=== PATIENT | female | born 1955 | race Caucasian/White ===

== ENCOUNTER 2022-06-03 07:35 | Outpatient (CLI) | payer MEDICARE, BC, SELFPAY | END 2022-06-03 07:36 | disposition home or self-care (01) | LOC: NFLDREF 06-04 14:34 | PROVIDERS: PCP Internal Medicine; Referring Provider Internal Medicine; Visit Provider Internal Medicine | DX: I10 Essential (primary) hypertension (principal); E78.5 Hyperlipidemia, unspecified | CPT/HCPCS: 80053; 80061 ==

== ENCOUNTER 2023-02-22 06:33 | Outpatient (CLI) | payer MEDICARE, BC, SELFPAY ==
--- OUTSIDE RECORDS SUMMARY | 2023-02-22 06:35 | XMS_ITS | Continuity of Care Document ---
Author Name Unknown Organization [facility] Address [address] [address] [place] [address] Phone Care Team Providers Care Seedling Puller Name Role Phone Jabier Adames MD Unavailable Unavailable Allergies, Adverse Reactions, Alerts Substance Reaction Status Criticality ampicillin Rash Active No Information Medications Medication Instructions Dosage Effective Dates (start - stop) Status Comments Canasa 1,000 mg rectal suppository insert 1 suppository by rectal route every day at bedtime 1000 MG - Active biotin 1,000 mcg chewable tablet take 1 tablet by oral route every day 1 tablet - Active Vitamin D3 2,000 unit capsule take 1 tablet by oral route every day 1 tablet - Active Multivitamin unknown Oral - Active FISH OIL (unknown strength) Not Available - Active coenzyme Q10 200 mg capsule take 1 capsule by oral route every day 1 capsule - Active aspirin 81 mg chewable tablet chew 1 tablet by oral route every day 81 MG - Active cetirizine 10 mg chewable tablet chew 1 tablet by oral route every day 10 MG - Active simvastatin 40 mg tablet take 1 tablet b y oral route every day in the evening 40 MG - Active hydrochlorothiazide 12.5 mg tablet take 1 tablet by oral route every day 12.5 MG - Active Lialda 1.2 gram tablet,delayed release take 1 tablet by oral route 2 times every day with a meal 1.2 G - No Longer Active balsalazide 750 mg capsule take 2 capsule by oral route 2 times every day 1500 MG - No Longer Active Procedures Procedure Date Offic/outpt E&m New Mod-hi Esophagoscopy; W/balloon Colonoscopy Flex; W/bx 1/ Advance Directives Directive Yes / No Effective Date File Name No Information Encounters Encounter Description Practice Location Reason(s) For Visit Diagnoses Date Provider Providers Copied on Encounter [facility], [address] [address], [place], [place], [id number], [place] tel:[phone] [facility] No Information 9 Zacarias Eugene. [address] [address], [place], [place], [id number] , [place]. [phone] [facility], [address] [address], [place], [place], [id number], [place] tel:[phone] [facility] No Information 8 Zacarias Eugene. [address] [facility], [place], [place], [id number] , [place]. tel:[phone] Offic/outpt E&m [facility], [address] [address], [place], [place], [id number], [place] tel:[phone] [facility] GI Symptoms or Concerns (chief complaint) Ulcerative proctitis with rectal bleedingDietary counseling and surveillance 8 Zacarias Eugene. [address] [facility], [place], [place], [id number] , [place]. tel:[phone] Referring Provider: Aurelio Martell, [address] [place] [address], [address]. tel:[phone] [facility], [address] [address], [place], [place], [id number], [place] tel:[phone] [facility] DiarrheaRectal bleed/BRBPR [address] Dion Powers. [address] [facility], [place], [place], [id number] , [place]. tel:[phone] Referring Provider: Georgette Botello MD, [address], [place], [address]. tel:[phone] Family History Family Member Type Diagnosis Age At Onset Father Problem (finding) Non-Hodgkin's lymphoma Sister Problem (finding) Alive and well Father Problem (finding) Cardiovascular disease Payers Payer name Insurance type Covered republican ID Liliya daniel(s) [facility] [id number] Social History Type Description Quantity Date Captured Comments Alcohol Use Details Unknown Caffeine Use Details Unknown Tobacco Use Status No Information Smoking Status No Information Sex Female Chief Complaint And Reason For Visit No Information Reason For Referral Reason For Referral No Information Plan Of Treatment Date Type Action Status Goal Lifestyle education regardin g diet completed Referral Ordered: Start IBD Disease Management Protocol Appointment date/timeframe: -today ordered History Of Present Illness Encounter Date Complaint History Of Prese nt Illness GI Symptoms or Concerns I had th e pleasure of meeting Ms. Dianne Louie, a 62-year-old woman seen in consultation at the request of Dr. Aurelio Gonzalez for evaluation of ulcerative proctitis.Dianne was diagnosed with ulcerative proctitis over two decades ago, at least. It looks like in the early 1999, she followed with Dr. 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 She also has some bilateral lower abdominal cramping especially after eating or in the morning.She was referred for a colonoscopy performed by Dr. Gonzalez in November of this year with a finding of severely erythematous mucosa in the rectosigmoid colon. Biopsies showed moderately active and chronic colitis. Functional Status Date Functional Assessmen t No Information Instructions Date Instruction Additional Infor mation 1. Education about u lcerative proctitis.2. Proceed with oral mesalamine and rectal mesalamine.3. She will call me or e-mail me in four weeks and we will discuss next steps.Thank you very much for involving me in the care of Ms. Louie. Related to Ulcerative proctitis with rectal bleeding Lifestyle education regarding di et Related to Dietary counseling and surveillance Assessments Type Assessment Date No Information Patient Care Teams Name Effective Dates (start - stop) Status Members No Information
--- NOTE | 2023-02-22 08:04 | W.ANESCHARGE ---
Anesthesia Charges Start Date/Time Anesthesia Start Date: 02/22/23 Anesthesia Start Time: 07:18 Stop Date/Time Anesthesia Stop Date: 02/22/23 Anesthesia Stop Time: 07:57
--- NOTE | 2023-02-22 09:50 | W.ANESCHARGE ---
Anesthesia Charges Start Date/Time Anesthesia Start Date: 02/22/23 Anesthesia Start Time: 07:18 Stop Date/Time Anesthesia Stop Date: 02/22/23 Anesthesia Stop Time: 07:57
== END 2023-02-22 06:34 | disposition home or self-care (01) ==
LOC: OP CLINIC 06:34
PROVIDERS: PCP Internal Medicine; Visit Provider Surgery
DX: Z12.11 Encounter for screening for malignant neoplasm of colon (principal); K63.5 Polyp of colon; K52.3 Indeterminate colitis
CPT/HCPCS: 00811; 45385; 88305; J2704

== ENCOUNTER 2023-10-03 17:08 | Outpatient (CLI) | payer MEDICARE, BC, SELFPAY ==
--- OUTSIDE RECORDS SUMMARY | 2023-10-03 17:10 | XMS_ITS | Encounter Summary ---
Author Organization [facility] Address [address], [place] [address] Care Team Providers Care Convertible Top Installer Name Role Phone Kezia Mendez DO Primary Care Provider [phone] Reason for Visit * Reason Comments RESULTS, TEST Stress echocardiogra m Encounter Details Date Type Department Care Team (Late st Contact Info) Description 07/25/2023 [facility] [address] [place] [address] Lucy Damian MD [address] [place] [address] RESULTS, TEST (Stress echocardiogram) Social History Tobacco Use Types Packs/Day Years Used Date Smoking Tobacco: Former Cigarettes 0 03/28/1987 - 03/28/1962 Smokeless Tobacco: Never Sex and Gender Information Value Date Recorded Sex Assigned at Not on file Gender Identity Not on file Sexual Orientation Not on file documented as of this encounter Nursing Notes * Carmina Mendiola RN - 07/25/2023 12:09 PM CDT Spoke to Dianne; reviewed normal results per Dr. Damian. Patient verbalizes understanding with no further questions. * Carmina Mendiola RN - 07/25/2023 12:07 PM CDT ----- Message from Jing Vang RN sent at 07/22/2023 3:38 PM CDT ----- ----- Message ----- From: Lucy Damian MD Sent: 07/22/2023 3:08 PM CDT To: Jign Vang RN Can you please let the patient know the test is normal. documented in this encounter Plan of Treatment Not on file documented as of this encounter Visit Diagnoses Not on filedocumented in this encounter Care Teams Convertible Top Installer Relationship Specialty Start Date End Date Kezia Mendez DO [address] [place] [address] PCP - General Family Practice 06/06/23 documented as of this encounter
--- OUTSIDE RECORDS SUMMARY | 2023-10-03 17:10 | XMS_ITS | Clinical Summary ---
Author Organization [facility] Address [address] [address] Care Team Providers Care Part Time Receptionist Name Role Phone Kezia Mendez DO Primary Care Provider [phone] Source Comments You are receiving this document as you are listed as the primary care provider,follow-up provider, or the patient has been referred to you for consultation.This is in compliance with the Medicare and[facility] EHR Incentive Program,which states Providers who transition their patient to another setting of careor provider of care or refers their patient to another provider of care shouldprovide summary care record for each transition of care or referral. Ziliko Allergies Active Allergy Reactions Criticality Noted Date Comments Ampicillin Rash 06/06/2023 Does not take any cillins due to this Medications Medication Sig Dispensed Refills Start Date End Date Status desonide (DESOWEN) 0.05 % cream daily as needed. 01/13/2023 Active hydroCHLOROthiazide 12.5 MG capsule Take 1 Capsule (12.5 mg) by mouth every morning. 04/30/2023 Active metoprolol tartrate (LOPRESSOR) 25 MG tablet Take 1 Tablet (25 mg) by mouth two times a day. 03/26/2023 Active simvastatin (ZOCOR) 40 MG tablet Take 1 Tablet (40 mg) by mouth daily. 04/29/2023 Active rosuvastatin (CRESTOR) 20 MG tablet Take 1 Tablet (20 mg) by mouth daily. 90 Tablet 3 07/25/2023 07/24/2024 Active Encounters Date Type Department Care Team Description 07/25/2023 Telephone [facility] [address] [place] [address] Lucy Damian MD RESULTS, TEST (Stress echocardiogram) 07/19/2023 10:00 AM CDT Procedure Visit [facility] [address] [facility] [address] [place] [address] from Last 3 Months Social History Tobacco Use Types Packs/Day Years Used Date Smoking Tobacco: Former Cigarettes 0 03/28/1987 - 03/28/1962 Smokeless Tobacco: Never Tobacco Cessation:Counseling Given: Not Answered Sex and Gender Information Value Date Recorded Sex Assigned at Not on file Gender Identity Not on file Sexual Orientation Not on file Last Filed Vital Signs Vital Sign Reading Time Taken Comments Blood Pressure 138/81 06/06/2023 12:51 PM CDT Pulse 60 06/06/2023 12:51 PM CDT Temperature - - Respiratory Rate - - Oxygen Saturation - - Inhaled Oxygen Concentration - - Weight 78 kg (172 lb) 06/06/2023 12:51 PM CDT Height 160 cm (5' 3) 06/06/2023 12:51 PM CDT Body Mass Index 30.47 06/06/2023 12:51 PM CDT Plan of Treatment Health Maintenance Due Date Last Done Comments Colon Cancer Screening Plan Due 1955 Diabetes Screening- (based on age and BMI) 1955 Hep C Screening (Preventive Services) 1955 Medicare Annual Wellness Visit 1955 Mammogram 1955 Cholesterol 10/26/2000 Dexa 10/26/2020 COVID-19 Vaccine ( season) 2023 02/02/2023, 01/26/2022, 07/31/2021, Additional history exists Influenza (#1) 2023 02/02/2023, 11/0 03/2021, 02/11/2021, Additional history exists DTaP/Tdap/Td (3 - Tdap) 06/09/2032 06/09/2022, 01/09 Zoster/Shingles Completed 03/12/2019, 11/26, 02/25/2015 Pneumococcal 65+ Yrs Completed 06/09/2022, 05/28/19 22 HepA Aged Out No longer eligi ble based on patient's age to complete this topic HepB Aged Out No longer eligi ble based on patient's age to complete this topic Hib Aged Out No longer eligi ble based on patient's age to complete this topic IPV (Polio) Aged Out No longer eligi ble based on patient's age to complete this topic MCV4 Aged Out No longer eligi ble based on patient's age to complete this topic Procedures Procedure Name Priority Date/Time Associated Diagnosis Comments STRESS ECHO Routine 07/19/2023 10:52 AM CDT Chest pain, unspecified type from Last 3 Months Results * Stress Echocardiogram (07/19/2023 10:52 AM CDT) 07/19/2023 10:5 2 AM CDT Narrative PN ECHO - 07/19/2023 11:26 AM CDT STRESS ECHOCARDIOGRAM. Date: 07/19/2023 Start: 10:52 AM Facility: [facility] CONCLUSIONS REST: LV chamber size and segmental and global wall motion are normal. There is mild concentric left ventricular hypertrophy. No significant valvular abnormalities are seen. The visually estimated resting LVEF is 70%. STRESS: All segments display appropriate hyperkinesis; ejection fraction increases appropriately. End systolic area decreases. CONCLUSIONS: 1. Normal exercise echocardiogram with adequate heart rate and workload. 2. No evidence for inducible ischemia. 3. Hypertensive blood pressure response to exercise with a peak BP of 230/110 mmHg. 4. Occasional PAC's and occasional PVC's were noted during the test. 5. Risk stratification by stress echocardiography is identified as low risk based on normal stress echocardiogram. REST ECG Normal sinus rhythm. Normal ST-T segments. Resting HR:71 bpmResting BP:158/86 mmHg Pre-Stress Physical Exam Current patient medications that may affect electrocardiographic interpretation.: Metoprolol, held for 24 hours or greater. . STRESS Stress Type: Bike Ergometer Peak HR: 142 bpm ?HR Response: Normal Peak BP: 230/110 mmHg ? BP Response: Abnormal Max Predicted HR: 153 bpm ? HR BP Product: 85326 % of Max Predicted HR: 93 ? Max Exercise: 5.4 METS Test Duration: 5.7 min Reason for Termination: Fatigue ? Exercise Effort: Good Risk Stratification: Low risk Stress Interpretation ECG portion of stress test is negative for ischemia. RESULTS Global LVEF (rest): Normal (LVEF >51%) Global LVEF (stress): Hyperkinetic (LVEF >72%) ECG No significant ST-T changes noted. ARRHYTHMIAS Occasional PAC's and occasional PVC's were noted during the test. SYMPTOMS Fatigue. Hypertensive response to exercise. Protocol completed. Predicted heart rate achieved. No cardiovascular symptoms with maximal exercise. M-MODE/2D MEASUREMENTS & CALCULATIONS EF Estimated: 70 % ?MR Radius: PROCEDURE Doppler Quality: Adequate quality pulse, continuous wave, and color Doppler was performed and interpreted. 2-D Quality:Adequate quality 2-dimensional echo was performed and interpreted. Indications: Chest pain. Contrast Medium: Optison. Contrast Amt. - 2 ml Height: 63 inches Weight: 172 pounds BSA: 1.81 m^2 BMI: 30.47 kg/m^2 Rhythm: Sinus Gender: ?Female *Suboptimal study; Echo dropout of the anterior, lateral, apical, septal, inferior wall/s. 6 of 6 segments in standard Apical 4 chamber, 3 chamber, 2 chamber view/s are not visualized on study. An image enhancer was used due to suboptimal endocardial definition. With the use of an image enhancer, the segments of the left ventricle were reasonably visualized. *IV Size: 22 ga; IV Location: right; # of attempts: 1; Vein: accessory cephalic vein. SIGNATURE DEMOGRAPHICS Patient Name ?? CHARLES Nevarez Room Number ?OUTPT Patient Number [id number] ?Date of Study ?07/19/2023 Accession ?[id number] ?Interpreting ? LUCY CASILLAS, Number ? Provider ? Date of ??1955 ?Ordering Provider ??Lucy Damian MD Primary Provider ?Black Belt ?JS, [facility] Nurse ?KH, auditor Note Lucy Casillas MD - 07/19/2023 STRESS ECHOCARDIOGRAM. Date: 07/19/2023 Start: 10:52 AM Facility: [facility] CONCLUSIONS REST: LV chamber size and segmental and global wall motion are normal. There is mild concentric left ventricular hypertrophy. No significant valvular abnormalities are seen. The visually estimated resting LVEF is 70%. STRESS: All segments display appropriate hyperkinesis; ejection fraction increases appropriately. End systolic area decreases. CONCLUSIONS: 1. Normal exercise echocardiogram with adequate heart rate and workload. 2. No evidence for inducible ischemia. 3. Hypertensive blood pressure response to exercise with a peak BP of 230/110 mmHg. 4. Occasional PAC's and occasional PVC's were noted during the test. 5. Risk stratification by stress echocardiography is identified as low risk based on normal stress echocardiogram. REST ECG Normal sinus rhythm. Normal ST-T segments. Resting HR:71 bpmResting BP:158/86 mmHg Pre-Stress Physical Exam Current patient medications that may affect electrocardiographic interpretation.: Metoprolol, held for 24 hours or greater. . STRESS Stress Type: Bike Ergometer Peak HR: 142 bpm HR Response: Normal Peak BP: 230/110 mmHg BP Response: Abnormal Max Predicted HR: 153 bpm HR BP Product: 68154 % of Max Predicted HR: 93 Max Exercise: 5.4 METS Test Duration: 5.7 min Reason for Termination: Fatigue Exercise Effort: Good Risk Stratification: Low risk Stress Interpretation ECG portion of stress test is negative for ischemia. RESULTS Global LVEF (rest): Normal (LVEF >51%) Global LVEF (stress): Hyperkinetic (LVEF >72%) ECG No significant ST-T changes noted. ARRHYTHMIAS Occasional PAC's and occasional PVC's were noted during the test. SYMPTOMS Fatigue. Hypertensive response to exercise. Protocol completed. Predicted heart rate achieved. No cardiovascular symptoms with maximal exercise. M-MODE/2D MEASUREMENTS & CALCULATIONS EF Estimated: 70 % MR Radius: PROCEDURE Doppler Quality: Adequate quality pulse, continuous wave, and color Doppler was performed and interpreted. 2-D Quality:Adequate quality 2-dimensional echo was performed and interpreted. Indications: Chest pain. Contrast Medium: Optison. Contrast Amt. - 2 ml Height: 63 inches Weight: 172 pounds BSA: 1.81 m^2 BMI: 30.47 kg/m^2 Rhythm: Sinus Gender: Female *Suboptimal study; Echo dropout of the anterior, lateral, apical, septal, inferior wall/s. 6 of 6 segments in standard Apical 4 chamber, 3 chamber, 2 chamber view/s are not visualized on study. An image enhancer was used due to suboptimal endocardial definition. With the use of an image enhancer, the segments of the left ventricle were reasonably visualized. *IV Size: 22 ga; IV Location: right; # of attempts: 1; Vein: accessory cephalic vein. SIGNATURE DEMOGRAPHICS Patient Name CHARLES Nevarez Room Number OUTPT Patient Number [id number] Date of Study 07/19/2023 Interpreting LUCY CASILLAS, Number Provider Date of 1955 Ordering Provider Lucy Damian MD Primary Provider Black Belt JS, [facility] Nurse KH, RN Lucy Damian MD ET ECHO ORDERABLES PN ECHO from Last 3 Months Care Teams Part Time Receptionist Relationship Specialty Start Date End Date Kezia Mendez DO [address] [place] [address] PCP - General Family Practice 06/06/23
--- OUTSIDE RECORDS SUMMARY | 2023-10-03 17:10 | XMS_ITS | Encounter Summary ---
Author Organization [facility] Address [address] [address] Care Team Providers Care Place Change Roof Bolter Name Role Phone Kezia Mendez DO Primary Care Provider [phone] Encounter Details Date Type Department Care Team (Late st Contact Info) Description 06/14/2023 Telephone [place] [facility] [address] [facility] [place], [place] [id number] Lucy Damian MD [address] [place], [place] [id number] Social History Tobacco Use Types Packs/Day Years Used Date Smoking Tobacco: Former Cigarettes 0 03/28/1987 - 03/28/1962 Smokeless Tobacco: Never Sex and Gender Information Value Date Recorded Sex Assigned at Not on file Gender Identity Not on file Sexual Orientation Not on file documented as of this encounter Nursing Notes * Elvia Rollins RN - 06/14/2023 11:16 AM CDT Records on your desk from [facility] for your review and then I will file. documented in this encounter Plan of Treatment Not on file documented as of this encounter Visit Diagnoses Not on filedocumented in this encounter Care Teams Place Change Roof Bolter Relationship Specialty Start Date End Date Kezia [place]endez [place] [address] PCP - General Family Practice 06/06/23 documented as of this encounter
--- OUTSIDE RECORDS SUMMARY | 2023-10-03 17:10 | XMS_ITS | Encounter Summary ---
Author Organization [facility] Address [address], [place] [address] Care Team Providers Care Hall Supervisor Name Role Phone Kezia Mendez Primary Care Provider [phone] Reason for Visit * Reason Onset Date Comments Follow-up 06/23/2023 Encounter Details Date Type Department Care Team (Late st Contact Info) Description 06/23/2023 [facility]ill [facility] [address] [facility] [place] [id number] Lucy Damian MD [address] [place], [place] [id number] Follow-up Social History Tobacco Use Types Packs/Day Years Used Date Smoking Tobacco: Former Cigarettes 0 03/28/1987 - 03/28/1962 Smokeless Tobacco: Never Sex and Gender Information Value Date Recorded Sex Assigned at Not on file Gender Identity Not on file Sexual Orientation Not on file documented as of this encounter Nursing Notes * Elvia Rollins RN - 07/25/2023 4:16 PM CDT Pt had a px with her systems lead and did discuss a sleep study. RX sent for her crestor but it sounds like she had it filled through her systems lead already . * Elvia Rollins RN - 06/23/2023 10:34 AM CDT Pt calling for two things. Crestor 20 mg never sent in ( I pended it now ) You discussed a sleep study ? She would like it at [place] if possible. She will be seeing her systems lead in [place] in 2 weeks. Should she just have them order it that day ? Or do you want to order it to be done through [facility] ? Thank-you documented in this encounter Plan of Treatment Not on file documented as of this encounter Visit Diagnoses Not on filedocumented in this encounter Care Teams Hall Supervisor Relationship Specialty Start Date End Date Kezia Mendez DO [address] [place] [address] PCP - General Family Practice 06/06/23 documented as of this encounter
--- OUTSIDE RECORDS SUMMARY | 2023-10-03 17:10 | XMS_ITS | Encounter Summary ---
Author Organization [facility] Address [address] [place] [address] Care Team Providers Care Music Video Director Name Role Phone Kezia Mendez Primary Care Provider [phone] Reason for Visit * Procedure/Equipment (Routine) - Closed Specialty Diagnoses / Procedures Referred By Julia t Referred To Contact Diagnoses Chest pain, unspecified type Procedures Stress Echocardiogram Lucy Damian MD [address] [place] [address] Referral ID Status Reason Start Date Expiration Date Visits Re quested Visits Authorized [id number] Closed 06/06/2023 09/04/2024 1 1 Encounter Details Date Type Department Care Team (Late st Contact Info) Description 07/19/2023 10:00 AM CDT Procedure Visit [place] [facility] [address] Noninvasive Cardiology [address] [place] [address] Social History Tobacco Use Types Packs/Day Years Used Date Smoking Tobacco: Former Cigarettes 0 03/28/1987 - 03/28/1962 Smokeless Tobacco: Never Sex and Gender Information Value Date Recorded Sex Assigned at Not on file Gender Identity Not on file Sexual Orientation Not on file documented as of this encounter Progress Notes * Shruti Thayer RN - 07/19/2023 10:00 AM CDT Stress test complete. Results pending. * Lucy Damian MD - 07/19/2023 10:00 AM CDT Can you please let the patient know the test is normal. documented in this encounter Plan of Treatment Not on file documented as of this encounter Procedures Procedure Name Priority Date/Time Associated Diagnosis Comments STRESS ECHO Routine 07/19/2023 10:52 AM CDT Chest pain, unspecified type documented in this encounter Results * Stress Echocardiogram (07/19/2023 10:52 AM CDT) 07/19/2023 10:5 2 AM CDT Narrative PN ECHO - 07/19/2023 11:26 AM CDT STRESS ECHOCARDIOGRAM. Date: 07/19/2023 Start: 10:52 AM Facility: [facility]: LV chamber size and segmental [...] HR: 153 bpm ? HR BP Product: 64732 % of Max Predicted HR: 93 ? [...] CHARLES Nevarez Room Number ?OUTPT Patient Number [id number] ?Date of Study ?07/19/2023 Accession ?[id number] ?Interpreting ? LUCY CASILLAS, Number ? Provider ? Date of ??1955 ?Ordering Provider ??Lucy Damian MD Primary Provider ?Hatchery Attendant ?JS, CS Nurse ?KH, post partum nurse Note Lucy Casillas MD - 07/19/2023 STRESS ECHOCARDIOGRAM. Date: 07/19/2023 Start: 10:52 AM Facility: [facility]: LV chamber size and segmental [...] Predicted HR: 153 bpm HR BP Product: 65488 % of Max Predicted HR: 93 Max [...] CHARLES Nevarez Room Number OUTPT Patient Number [id number] Date of Study 07/19/2023 Interpreting LUCY CASILLAS, Number Provider Date of 1955 Ordering Provider Lucy Damian MD Primary Provider Hatchery Attendant JS, [facility] Nurse KH, RN Lucy Damian MD ET ECHO ORDERABLES PN ECHO documented in this encounter Visit Diagnoses Diagnosis Chest pain, unspecified type documented in this encounter Care Teams Music Video Director Relationship Specialty Start Date End Date Kezia Mendez DO [address] [place] [address] PCP - General Family Practice 06/06/23 documented as of this encounter
--- OUTSIDE RECORDS SUMMARY | 2023-10-03 17:11 | XMS_ITS | Clinical Summary ---
Author Organization [facility] Address [place], [place] [address] Care Team Providers Care Solid Propellant Processor Name Role Phone Kezia Mendez DO Primary Care Provider [phone] Allergies Active Allergy Reactions Criticality Noted Date Comments Ampicillin Rash 10/23/2007 Penicillins Rash 02/20/2014 Medications Medication Sig Dispensed Refills Start Date End Date Status biotin 1 mg cap Take by mouth. Activ e desonide 0.05% (TRIDESILON 0.05% CREAM) 0.05 % cream one time if needed. 01/13/2023 Active calcium carbonate-cholecalcifer ol, 600mg-200 units, (Calcium 600 + D,3,) tablet Take by mouth. Active cetirizine (ZYRTEC) 10 mg tablet Take 10 mg by mouth once daily. Active rosuvastatin (CRESTOR) 20 mg tabletIndications:Mixed hyperlipidemia Take 1 Tablet (20 mg) by mouth at bedtime. 90 Tablet 3 07/13/2023 Active metoprolol tartrate (LOPRESSOR) 25 mg tabletIndications:Sympt omatic PVCs Take 1 Tablet (25 mg) by mouth two times daily. 180 Tablet 3 07/13/2023 Active hydroCHLOROthiazide 25 mg tabletIndications:Prima ry hypertension Take 1 Tablet (25 mg) by mouth once daily. 90 Tablet 3 08/01/2023 Active Active Problems Problem Noted Date Diagnosed Date Osteopenia of multiple sites 08/17/2023 Overview: DEXA 2023 shows osteopenia Repeat in 2025 due to wrist fracture Ulcerative proctitis without complication 2023 Overview: Colonoscopy Q3 years (performed in 2022) Primary hypertension 07/13/2023 Mixed hyperlipidemia 07/13/2023 Symptomatic PVCs 07/13/2023 Hypertrophy of breast 02/25/2014 Small upper thoracic disk herniations 09/04/2012 Degeneration of cervical intervertebral disc 07/2010 Shoulder impingement syndrome 07/30/2010 Resolved Problems Problem Noted Date Diagnosed Date Resolved Date Colitis 09/04/2008 07/13/2023 Proctitis 09/04/2008 07/13/2023 Encounters Date Type Department Care Team Description 09/26/2023 9:00 AM CDT Ancillary Procedure [facility] [place] [address] 09/26/2023 8:30 AM CDT Office Visit [facility] [place] [address] Marvel Mendez DO Wrist Pain/problem (Feeling some improvement - notes she may have tweaked it a couple times since visit ) 09/26/2023 Travel 08/26/2023 11:45 AM CDT Ancillary Procedure [facility] [place] [address] 08/26/2023 Travel 08/23/2023 1:00 PM CDT Office Visit [facility] [place] [address] Parker Maurer, DEMI Follow Up (Bilateral foot-neuroma and plantar fasciitis ) 08/23/2023 Telephone [facility] [place] [address] Kezia Mendez, Follow Up (Blood pressure) 08/23/2023 Travel 08/16/2023 Telephone [facility] [place] [address] Kezia Mendez, Lab 08/15/2023 11:30 AM CDT Ancillary Procedure [facility] [place] [address] 08/15/2023 11:00 AM CDT Ancillary Procedure [address] [address] 08/15/2023 10:45 AM CDT Ancillary Procedure [facility] [address] [place] [address] 08/15/2023 10:10 AM CDT Office Visit [facility] [address] [place] [address] Andrea Adei, DO Wrist Pain/problem (X5-6 days ago - fell and hit left side - wrist is hurting - wearing a brace - icing it - mild swelling - bruising - needing some tylenol/ibu at bedtime - pain is causing some decreased ROM ) 08/15/2023 Travel 08/13/[address] [address] Arturoqra, Kezia Aleyda, DO Concerns (Injured Wrist ) 08/04/[address] [address] Parker Maurer, DPM Questions 08/04/2023 Nurse Triage [address] [address] Arturoqra Kezia Aleyda, DO Foot Pain/problem 08/04/[address] [address] Shaqra, Kezia Aleyda, DO Follow Up 07/29/[address] [address] Shaqra Kezia Aleyda, DO FYI (BLOOD PRESSURE) 07/27/[address] [address] Shaqra Kezia Aleyda, DO Blood Pressure 07/13/2023 8:30 AM CDT Office Visit [facility] [address] [place] [address] Shaqra Kezia Aleyda, DO Medicare ANNUAL (subsequent) Visit (67 year old female); Establish Care; Medication Management (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 ); Eye Problem (Dry eyes, doc suggested taking fish oil - ok to take? ); Reflux (Reflux at night - started Omeprazole, wondering how long to take this? ) 07/13/2023 Travel from Last 3 Months Immunizations Name Administration Dates Next Due COVID-19 vaccine Comirnaty (AOL 30mcg/0.3mL) 12YO+ 4823-1593 Formula PF, SDV, PFS 02/02/2023 Influenza A (H1N1), Inactivated 03/06/2009 Influenza, High-dose Quadriv alent Inactivated 02/11/2021 Influenza, IIV4 01/26/2018, 5,01/01/2013,03/06 Influenza, IIV4 (=>6mos) MDV 12/10/2019, 01/22/2019,01/05/2017,01/04 Influenza, Inactivated AIIV4 (Age 65+ Years) Preserv Free 02/02/2023,01/26/2022 Pneumococcal Conj 20-valent (Prevnar 20) 06/09/2022 Pneumococcal conj 13-Valent (Prevnar 13) 05/27/2021 RSV, Recombinant ADJ Reconst ituted (Arexvy 120MCG/0.5mL) 02/02/2023 Tdap 06/09/2022,01/10/2012 Zoster (Shingrix-RZV, recombinant) 03/12/2019, Zoster (Zostavax-ZVL, live) 02/25/2015 Family History Medical History Relation Name Comments Cancer Father Heart Disease Father Hyperlipidemia Father Hypertension Father Other Mother acoustic nuerom a Cancer-breast No Family History Cancer-ovarian No Family History Relation Name Status Comments Father Mother Social History Tobacco Use Types Packs/Day Years Used Date Smoking Tobacco: Never Smokeless Tobacco: Never Tobacco Cessation:Counseling Given: Yes Alcohol Use Standard Drinks/Week Comments Yes 5 (1 standard drink = 0.6 oz pur e alcohol) PHQ-2 Answer Date Recorded PHQ-2 TOTAL SCORE 0 07/13/2023 Social Connections Answer Date Recorded Frequency of Communication with Friends and Fami ly 0 07/13/2023 Financial Resource Strain Answer Date R ecorded Difficulty of Paying Living Expenses 3 07/13/2023 Difficulty of Paying Living Expenses Not on file 07/13/2023 Food Insecurity Answer Date Recorded Worried About Running Out of Food in the Last Ye ar 1 07/13/2023 Transportation Needs Answer Date Record ed Lack of Transportation (Medical) 1 07/13/2023 Housing Stability Answer Date Recorded Unable to Pay for Housing in the Last Year 1 07/13/2023 Sex and Gender Information Value Date Recorded Sex Assigned at Not on file Gender Identity Not on file Sexual Orientation Not on file Travel History Travel Start Travel End [place] 08/27/2023 09/26/2023 Obstetrics History Last Filed Vital Signs Vital Sign Reading Time Taken Comments Blood Pressure 132/84 09/26/2023 8:36 AM CDT Pulse 60 09/26/2023 8:36 AM CDT Temperature 36.7 ??C (98.1 ??F) 02/26/2014 7:45 AM CS T Respiratory Rate 20 02/26/2014 7:45 AM GLASS PRESSER Oxygen Saturation 98% 09/26/2023 8:36 AM CDT Inhaled Oxygen Concentration - - Weight 74.7 kg (164 lb 9.6 oz) 09/26/2023 8:36 A M CDT Height 158.7 cm (5' 2.48) 07/13/2023 8:51 AM CD T Body Mass Index 29.64 07/13/2023 8:51 AM CDT Plan of Treatment Upcoming Encounters Date Type Department Care Team (Late st Contact Info) Description 10/18/2023 3:20 PM CDT Office Visit [facility] [address] [place] [address] Marvel Mendez DO [address] [place] [address] 10/25/2023 10:45 AM CDT Telemedicine [facility] [address] [place] [address] Joi Simon NP [address] [place] [address] 11/02/2023 7:15 AM CDT Orders Only [facility] [address] [place] [address] Lab, [facility] Maintenance Due Date Last Done Comments COVID-19 vaccine series (2022-24 season) 2023 02/02/2023, 01/26/2022, 07/31/2021, Additional history exists Influenza for age 65+ 11/27/2023 02/02/2023 , 01/26/2022, 02/11/2021, Additional history exists BMI (ht and wt on same day) for age 18+ 07/12/2024 07/13/2023 Depression screening for age 12+ 07/12/2024 07/13/19 Medicare Wellness for age 65+ 07/13/2024 07/13/2023 Mammogram for age 45-75 08/14/2024 08/15/19 24, 08/03/2022, 05/22/2020, Additional history exists Lipids for age 45-75 07/12/2028 07/13/2023 Tetanus booster 06/09/2032 06/09/2022, 01/10/2012 Colonoscopy through age 75 02/22/2033 02/22/2023 Zoster (shingles) series for age 50+ Completed 03/12/2019, 12/12/2018, 02/25/2015 Pneumococcal series for age 65+ Completed , 05/27/2021 Tdap Completed 06/09/2022, 01/10/2012 Hepatitis C screening for ag e 18-79 Completed 07/13/2023 DEXA/DXA scan for age 65+ Completed 08/15/2023 Procedures Procedure Name Priority Date/Time Associated Diagnosis Comments XR WRIST 3 VIEWS LEFT Routine 09/26/2023 8:58 AM CDT Closed fracture of distal end of left radius with routine healing, unspecified fracture morphology, subsequent encounter XR WRIST 3 VIEWS LEFT Routine 08/26/2023 11:42 AM CDT Accidental fall, initial encounter Closed nondisplaced fracture of styloid process of left ulna, initial encounter XR DXA BONE DENSITY 2 SITES AXIAL Routine 08/15/2023 11:28 AM CDT Postmenopausal XR MAMMO YOAN BILAT SCREEN Routine 08/15/2023 11:05 AM CDT Breast cancer screening by mammogram XR WRIST 3 VIEWS LEFT STAT 08/15/2023 10:18 AM CDT Accidental fall, initial encounter BASIC METABOLIC PANEL Routine 07/13/2023 9:48 AM CDT Primary hypertension LIPID PANEL W REFLEX MEASURED LDL Routine 07/13/2023 9:48 AM CDT Screening for lipid disorders ANTI HCV Routine 07/13/2023 9:48 AM CDT Need for hepatitis C screening test SCAN-COLONOSCOPY 02/22/2023 12:0 0 AM GLASS PRESSER from Last 3 Months or Most Recently Relevant to Health Maintenance Results * XR WRIST 3 VIEWS LEFT (09/26/2023 8:58 AM CDT) Only the most recent of3 resultswithin the time period is included. Anatomical Region Laterality Modality WRISTS, WRIST L Computed Radiogr aphy 09/27/2023 9:45 AM CDT Narrative 09/27/2023 9:45 AM CDT For Patients: ??As a result of the Cures Act, medical imaging exams and procedure reports are released immediately into your electronic medical record. ??You may view this report before your referring provider. ??If you have questions, please contact your health care provider. INDICATION: Closed fracture distal left radius. COMPARISON: 08/26/2023 and 08/15/2023. FINDINGS: Three views of the left wrist obtained. Again noted is nondisplaced fracture in the distal radius. There is increased sclerosis at the fracture site. There is no new fracture seen or station. Impression: Stable healing nondisplaced fracture distal left radius. Dictated by Mg Jain MD @ 09/27/2023 9:45:35 AM (Electronically Signed) Procedure Note Mg Jain MD - 09/27/2023 For Patients: As a result of the Cures Act, medical imagingexams and procedure reports are released immediately into your electronicmedical record. You may view this report before your referring provider.If you have questions, please contact your health care provider. INDICATION: Closed fracture distal left radius. COMPARISON: 08/26/2023 and 08/15/2023. FINDINGS: Three views of the left wrist obtained. Again noted is nondisplacedfracture in the distal radius. There is increased sclerosis at thefracture site. There is no new fracture seen or station. Impression: Stable healing nondisplaced fracture distal left radius. Dictated by Mg Jain MD @ 09/27/2023 9:45:35 AM (Electronically Signed) Lazarai Andrea DO GENERAL IMAGING * (ABNORMAL) XR DXA BONE DENSITY 2 SITES AXIAL [26381.1] (08/15/2023 11:28 AM CDT) Anatomical Region Laterality Modality Spine, HIPS, HIPL, HIPR Other Impressions 08/16/2023 2:00 PM CDT Osteopenia. RECOMMENDATIONS: The National Osteoporosis Foundation recommends pharmacologic treatment for patients with T-scores of -2.5 or less, patients with prior history of fragility fractures, or patients with 10-year probability of greater than 3% at hips or greater than 20% of suffering major osteoporotic fractures. Recommend continued optimization of calcium and vitamin D intake through dietary means and/or supplementation and regular exercise. Repeat scan recommended in 3-5 years. Alice Gilbert PA-C [facility] 08/16/2023 ?? Narrative 08/16/2023 2:00 PM CDT For Patients: Results are automatically released to your [facility] ([facility]) account once available, in compliance with federal regulations. This means that you may see your results before your provider has had a chance to review them. Please allow 2-3 business days for your provider to comment on the results. XR DXA Bone Mineral Density (BMD) EXAM LOCATION: [address] [address] PATIENT NAME: Dianne Louie DATE OF : 1955 EXAM DATE: 08/15/2023 REQUESTING PROVIDER: Kezia Mendez DO GENDER AT : female HEIGHT: 5' 2.48 (07/13/2023) WEIGHT: ??170 lb (08/15/2023) MENOPAUSAL STATUS: Postmenopausal RACE/ETHNICITY: White RISK FACTORS: Family History of Osteoporosis, History of Fragility Fracture (at a major site), Smoking (prior), and White Race CURRENT MEDICATION FOR BONE LOSS: NONE INDICATION: Menopause COMPARISON DATE(S): None DXA scans are compared to prior studies for a patient only when the two (or more) studies were performed on the same scanner. It is not possible to compare data generated on one scanner to data from another because there are not standards in DXA equipment. This applies even if the two scanners are made by the same architectural representative. PROCEDURE: Dual-energy x-ray absorptiometry performed with routine technique. Reporting is completed in the form of a T-score. The T-score represents the standard deviation from peak bone mass based on young healthy adult. A Z-score is used for diagnosis in premenopausal women, and for men under the age of 50. FINDINGS: RESULT LUMBAR SPINE L1 - L4 BMD: 1.067 g/cm2 T-Score: - 1.0 Z-Score: + 0.2 Change from prior: ??None RESULTS FEMUR Left femoral neck BMD: 0.840 g/cm2 T-Score: - 1.4 Z-Score: - 0.1 Change from prior: ??None Right femoral neck BMD: 0.862 g/cm2 T-Score: - 1.3 Z-Score: + 0.1 Change from prior: ??None Left hip BMD: 0.896 g/cm2 T-Score: - 0.9 Z-Score: + 0.2 Change from prior: ??None Right hip BMD: 0.876 g/cm2 T-Score: - 1.0 Z-Score: + 0.0 Change from prior: ??None WHO criteria: Normal: T-score at or above -1 SD Osteopenia: T-score between -1.1 and -2.4 SD Osteoporosis: T-score at or below -2.5 SD FRAX RISK CALCULATION (USED FOR OSTEOPENIA ONLY): 10-year probability of major osteoporotic fracture: 14.7%. 10-year probability of hip fracture: 1.7%. Kezia Aleyda Shaqra DO DEXA * XR MAMMO YOAN BILAT SCREEN [[id number]] (08/15/2023 11:05 AM CDT) Anatomical Region Laterality Modality BREASTS, Breast Left, Breast Right Bilateral Mammography Impressions 08/15/2023 4:02 PM CDT ??There is no radiographic evidence for malignancy. ??Recommend annual mammograms. MAMMOGRAM ASSESSMENT: ??ACR 1 Negative PATIENTS: You will also receive a letter with your examination results in an easy to read format. ??If you have questions about your results, please contact your referring provider. Narrative 08/15/2023 4:02 PM CDT For Patients: As a result of the Century Cures Act, medical imaging exams and procedure reports are released immediately into your electronic medical record. You may view this report before your referring provider. If you have questions, please contact your health care provider. XR MAMMO YOAN BILAT SCREEN [[id number]] CLINICAL HISTORY: ??This is an asymptomatic 67 y.o. patient. INDICATION FOR EXAM: Mammogram Screening. TECHNIQUE: CC & MLO views were obtained. ??This study was evaluated with the assistance of Computer-Aided Detection. Breast Tomosynthesis was used in interpretation. COMPARISON FILM: Priors not available at the time of this report. ? FINDINGS: ??The breasts have scattered areas of fibroglandular density. There are no dominant masses, suspicious micro calcifications or areas of architectural distortion. Kezia Aleyda Shaqra DO MAMMO * (ABNORMAL) LIPID PANEL W REFLEX MEASURED LDL [[id number]] (07/13/2023 9:48 AM CDT) CHOLESTEROL,TOTAL 218(H) 100 - 199 mg/dL 07/13/2023 5:18 PM CDT [facility] Comment: Cholesterol, Total Reference Ranges Desirable <200 mg/dL Borderline 200-239 mg/dL High >=240 mg/dL TRIGLYCERIDES 108 <150 mg/dL 07/13/2023 5:18 PM CDT [facility] HDL CHOLESTEROL 68 >40 mg/dL 5:18 PM CDT [facility] NON-HDL CHOLESTEROL 150(H) <145 mg/dl 07/13/2023 5:18 PM CDT [facility] CHOL/HDL RATIO 3.21 <4.50 07/13/2023 5:18 PM CDT [facility] LDL CHOLESTEROL 128 <=130 mg/dL 07/13/2023 5:18 PM CDT [facility] VLDL CHOLESTEROL 22 <=30 mg/dL 07/13/2023 5:18 PM CDT [facility] PROVIDER ORDERED STATUS RANDOM 07/13/2023 5:18 PM CDT [facility] Blood BLOOD SPECIMEN / Unknown Venipuncture / Unknown 07/13/2023 9:48 AM CDT 07/13/2023 9:49 AM CDT Kezia Aleyda Andrea SOSA CHEMISTRY Performing Organization Address [facility] Co de Phone Number [facility] [address] [place] [id number], [place] * ANTI HCV (07/13/2023 9:48 AM CDT) HEPATITIS C ANTIBODY Non-Reacti ve Non-React francisco 07/13/2023 5:03 PM CDT [facility] Comment:Please note, per www .CDC.gov: If a patient is known to be at high risk of HCV infection, or is symptomatic, and the physician's suspicion of HCV infection is high, HCV RNA testing is often employed and is of diagnostic value, even after an initial negative anti-HCV test result. Blood BLOOD SPECIMEN / Unknown Venipuncture / Unknown 07/13/2023 9:48 AM CDT 07/13/2023 9:49 AM CDT Kezia Mendez DO SEND OUTS Performing Organization Address [facility] Co de Phone Number [facility] [address] [place] [id number], [place] * (ABNORMAL) BASIC METABOLIC PANEL (07/13/2023 9:48 AM CDT) [facility] SODIUM 142 136 - 145 mmol/L 07/13/2023 5:18 PM CDT [facility] POTASSIUM 4.1 3.5 - 5.1 mmol/L 07/13/2023 5:18 PM CDT [facility] CHLORIDE 103 98 - 107 mmol/L 07/13/2023 5:18 PM CDT [facility] CO2,TOTAL 26 22 - 29 mmol/L 07/13/2023 5:18 PM CDT [facility] ANION GAP 13 5 - 18 07/13/2023 5:18 PM CDT [facility] GLUCOSE 97 70 - 99 mg/dL 07/13/2023 5:18 PM CDT [facility] CALCIUM 9.5 8.8 - 10.2 mg/dL 07/13/2023 5:18 PM CDT [facility] BUN 15 8 - 23 mg/dL 07/13/2023 5:18 PM CDT [facility] CREATININE 0.76 0.50 - 0.90 mg/dL 07/13/2023 5:18 PM CDT [facility] BUN/CREAT RATIO 20 10 - 20 5:18 PM CDT [facility] eGFR 86(L) >90 mL/min/1.7 3m2 07/13/2023 5:18 PM T [facility] Comment:As of 2021, eG FR is calculated by the CKD-EPI creatinine equation without race adjustment. ??eGFR can be influenced by muscle mass, exercise, and diet. ??The reported eGFR is an estimation only and is only applicable if the renal function is stable. Blood BLOOD SPECIMEN / Unknown Venipuncture / Unknown 07/13/2023 9:48 AM CDT 07/13/2023 9:49 AM CDT Kezia Mendez DO CHEMISTRY [facility] [address] [place] [address], * SCAN-COLONOSCOPY (02/22/2023 12:00 AM GLASS PRESSER) Scanner OTHER from Last 3 Months or Most Recently Relevant to Health Maintenance Advance Directives * Full Code (Latest Code Status on File) Date Activated Date Inactivated Comments 02/25/2014 7:32 AM 02/26/2014 1:54 PM Care Teams Solid Propellant Processor Relationship Specialty Start Date End Date Kezia Mendez DO [address] [place] [address] PCP - General Family Practice 07/13/23
--- OUTSIDE RECORDS SUMMARY | 2023-10-03 17:11 | XMS_ITS | Continuity of Care Document ---
Author Organization [facility] Address [address] [address] [place] [address] Phone Care Team Providers Care Care Administrative Tech Name Role Phone Jabier Adames MD Unavailable [...] Diagnoses Date Provider Providers Copied on Encounter [facility], [address] [address], [place], [place], [id number], [place] tel:[phone] [facility] No Information 9 Zacarias Eugene. [address] [facility], [place], [place], [id number] , [place]. [phone] [facility], [address] [address], [place], [place], [address], [place] tel:[phone] [facility] No Information 8 Zacarias Eugene. [address] [facility], [place], [place], [address] , [place]. tel:[phone] Offic/outpt E&m [facility], [address] [address], [place], [place], [address], [place] tel:[phone] [facility] GI Symptoms or Concerns (chief complaint) Ulcerative proctitis with rectal bleedingDietary counseling and surveillance 8 Zacarias Eugene. [address] [facility], [place], [place], [id number] , [place]. tel:[phone] Referring Provider: Aurelio Martell, [address] [place] [address], [address]. tel:[phone] [facility], [address] [address], [place], [place], [address], [place] tel:[phone] [facility] DiarrheaRectal bleed/BRBPR 8200 5 Dion Powers. [address] [facility], [address], [place], [place], [address] , [place]. tel:[phone] Referring Provider: Georgette Botello MD, [address], [place], [address]. tel:[phone] Family History Family Member Type Diagnosis Age At Onset Father Problem (finding) Non-Hodgkin's lymphoma Sister Problem (finding) Alive and well Father Problem (finding) Cardiovascular disease Payers Payer name Insurance type Covered libertarian ID Liliya daniel(s) [employer] [id number] Social History Type Description Quantity Date Captured [...] she followed with Dr. Daly, here at [facility], and I did see a note [...]
--- NOTE | 2023-10-03 17:30 | MR_ITS ---
[address] [address] Phone:?[phone] Fax:?[phone] Referring Physician Information: Danilo Berumen M.D. [address] [facility] [address] Phone:?[phone] Fax:[phone] Patient:Moy Louie D.O.B:?1955 Sex:?Female Phone:?[phone] [facility] MRN:?[id number] Exam Date:?10/03/2023 EXAM: MRI of the RIGHT KNEE, without contrast CLINICAL HISTORY: Concern for medial meniscal tear of the right knee. COMPARISONS: Plain radiographs 09/20/2023. TECHNICAL: MR sequences of the right knee: sagittals: PD, PDFS coronals: PD, STIR axials: PD, T2 FS CONTRAST: None SEDATION: None FINDINGS: Bones: No fracture or destructive osseous lesion is seen. Patellofemoral joint: Cartilage: Diffuse grade III and IV chondromalacia over all portions of the patella and full-thickness chondral fissuring over the most lateral portion of the lateral femoral trochlea and most medial portion of the medial femoral trochlea with associated subchondral cystic changes. Retinacula: The medial and lateral retinacula are intact. Fat pads: The infrapatellar, quadriceps, and prefemoral fat pads are unremarkable. Knee joint: Effusion: Physiologic amount of joint fluid. Popliteal cyst: A large popliteal cyst contains a 1.1 x 0.8 x 1.0 cm loose ossific body. Posteromedial corner: The semimembranosus and pes anserine tendons are intact. Medial compartment: Medial meniscus: There is a 5 mm in length radial oblique tear from the posterior horn through posterior horn/posterior root junction of the medial meniscus. There is 2-3 mm of medial meniscal extrusion best seen on coronal series 7 image 17. Cartilage: 1.0 x 1.0 cm area of grade III chondromalacia over the lateral weightbearing portion of the medial femoral condyle. Lateral compartment: Lateral meniscus: Intact. Cartilage: Intact. Ligaments: Anterior cruciate ligament: Intact. Posterior cruciate ligament: Intact. Medial collateral ligament: Intact. Posterior oblique ligament: Intact. Fibular collateral ligament: Intact. Posterolateral corner: The distal biceps femoris tendon, iliotibial band, popliteus tendon, popliteus muscle, popliteofibular ligament, and arcuate ligament are intact. Extensor mechanism: Patellar tendon: Intact. Quadriceps tendon: Intact. IMPRESSION: 1. 5 mm in length radial oblique tear from the posterior horn through posterior horn/posterior root junction of the medial meniscus. 2-3 mm of medial meniscal extrusion. 2. 1.0 x 1.0 cm area of grade III chondromalacia over the lateral weightbearing portion of the medial femoral condyle. 3. Diffuse grade III and IV chondromalacia over all portions of the patella and full-thickness chondral fissuring over the most lateral portion of the lateral femoral trochlea and most medial portion of the medial femoral trochlea with associated subchondral cystic changes. 4. A large popliteal cyst contains a 1.1 x 0.8 x 1.0 cm loose ossific body. 5. No ligamentous injury, lateral meniscal tear, or tendinous pathology of the right knee. RCB Electronically signed on 10/04/2023 7:59:00 AM by Toni Patterson M.D.
== END 2023-10-03 17:09 | disposition home or self-care (01) ==
LOC: MRI 17:09
PROVIDERS: PCP Internal Medicine; Visit Provider Orthopaedic Surgery Sports Medicine
DX: M22.41 Chondromalacia patellae, right knee (principal); S83.241A Other tear of medial meniscus, current injury, right knee, initial encounter; M71.21 Synovial cyst of popliteal space [Baker], right knee; M17.11 Unilateral primary osteoarthritis, right knee; S83.206A Unspecified tear of unspecified meniscus, current injury, right knee, initial encounter
CPT/HCPCS: 73721

== ENCOUNTER 2023-10-19 07:03 | Day surgery (SDC) | payer MEDICARE, BC, SELFPAY ==
[2023-10-19] VITALS (12 sets, daily range): BP systolic 100–135; BP diastolic 67–86; PULSE 61–77; RESP 11–20; TEMP 36.2–37; O2SAT 95–98; BMI 30.2
--- NOTE | 2023-10-19 07:12 | W.PM.H&PU ---
History & Physical Update History & Physical Update H&P Reviewed and patient assessed: No changes noted
[2023-10-19] MEDS: LACTATED RINGERS 1000 ML 1,000 ML 100 ML IV ×2 (07:50→09:28)
[2023-10-19] MEDS: SODIUM CHLORIDE 0.9 % (FLUSH) 10 ML SYRINGE IVF (07:51)
--- NOTE | 2023-10-19 07:52 | SUR.PREOP ---
pt came in with an injury to her left wrist which i wrapped in coban
[2023-10-19] MEDS: CEFAZOLIN 2 GM in 0.9 % SODIUM CHLORIDE Mini-bag 100 ML IVPB (09:00)
[2023-10-19] MEDS: ROPIVACAINE 0.5% 30 ML 150 MG INJECTION (09:30)
--- NOTE | 2023-10-19 09:41 | PM.ORPRC ---
Procedure Note Date of procedure: 10/19/23 Procedure: PREOPERATIVE DIAGNOSIS: 1. Right knee medial meniscus tear POSTOPERATIVE DIAGNOSIS: 1. Right knee medial meniscus tear 2. 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 PROCEDURE: 1. Right knee arthroscopic partial medial meniscectomy 2. Right knee arthroscopic chondroplasty patellofemoral compartment SURGEON: Danilo Berumen M.D. PRODUCTION CONSULTANT: Jeffrey Unger PA-C. Of note, an assistant director of plant operations was critical for this case to aid in patient positioning, knee manipulation, instrument exchange, and closure. ANESTHESIA: General LMA EBL: 5 mL TOURNIQUET: 30 min at 300 torr COMPLICATIONS: None evident INDICATIONS: The patient is a pleasant 67-year-old female who has experienced right knee pain particularly with any twisting or turning. Physical exam was concerning for medial meniscus tear, this was confirmed on MRI. Additionally, attempted nonoperative management has been tried, and failed. Thus, surgery was recommended. FINDINGS: Grade 4 chondromalacia patella with loose chondral flaps at the margin. This involved the medial patellar facet and median ridge. He also grade 4 chondromalacia medial femoral condyle anteriorly, distally, and to a lesser degree posteriorly. Grade 3 chondromalacia medial femoral condyle and the remaining portion. Grade 1 chondromalacia lateral compartment. Intact ACL and PCL. Large popliteal cyst fluid encountered upon pressing on the posterior medial knee. No appreciable loose body identified. Complex tearing of the posterior horn medial meniscus. This approach the posterior root but the posterior root was intact. Lateral meniscus intact DESCRIPTION OF PROCEDURE: After a thorough discussion of risks, benefits, and alternatives, the patient was brought to the operating room and placed upon the operating table. Induction of anesthesia was undertaken as previously noted. 2g iv Ancef was administered within 1 hr of incision preoperatively. Appropriate time-out was performed identifying proper patient, site, and procedure. The right lower extremity was prepped and draped in the appropriate sterile fashion using ChloraPrep. The limb was exsanguinated and tourniquet inflated. Anterolateral and anteromedial portals were established with an 11 blade, and a diagnostic arthroscopy was performed. This identified the findings as noted above. Following the diagnostic arthroscopy, a partial medial menisectomy was performed with the combination of basket forceps and a motorized shaver. Following this, the meniscus was re-probed and found to be stable. Approximately 20-25 % of the overall meniscus required resection. In addition, the torpedo shaver and basket forceps was utilized for chondroplasty of the loose chondral flaps on the patella. At this stage, the shaver was reinserted into the suprapatellar pouch and all remaining meniscal debris was evacuated. Instruments were removed, excess fluid was drained, and closure performed with 4-0 Monocryl with Steri-Strips. Dressings were applied, the tourniquet deflated, and the patient was awoken from anesthesia and transferred to the PACU in stable condition. PLAN: 1. Weightbear as tolerated operative extremity. Crutch / walker ambulation assistance PRN. 2. Ice, acetominophen and/or ibuprofen, and oxycodone for pain as needed. 3. Knee range of motion and quad sets/straight leg raise regularly 4. Follow up with PA visit in 1-2 weeks for a wound check and possibly to initiate physical therapy.
--- NOTE | 2023-10-19 09:48 | W.ANESCHARGE ---
Anesthesia Charges Start Date/Time Anesthesia Start Date: 10/19/23 Anesthesia Start Time: 08:47 Stop Date/Time Anesthesia Stop Date: 10/19/23 Anesthesia Stop Time: 10:46
--- NOTE | 2023-10-19 09:50 | W.ANESCHARGE ---
Anesthesia Charges Start Date/Time Anesthesia Start Date: 10/19/23 Anesthesia Start Time: 08:47 Stop Date/Time Anesthesia Stop Date: 10/19/23 Anesthesia Stop Time: 09:46
--- NOTE | 2023-10-19 09:52 | W.ANESCHARGE ---
Anesthesia Charges Start Date/Time Anesthesia Start Date: 10/19/23 Anesthesia Start Time: 08:47 Stop Date/Time Anesthesia Stop Date: 10/19/23 Anesthesia Stop Time: 09:46
--- NOTE | 2023-10-19 10:17 | SUR.PHASEI ---
patient met discharge criteria per anesthesia
== END 2023-10-19 11:41 | disposition home or self-care (01) ==
LOC: OR 07:04
PROVIDERS: PCP Family Medicine; Visit Provider Orthopaedic Surgery Sports Medicine
PROC: (CPT 29870; principal; 2023-10-19 08:45)
DX: S83.231A Complex tear of medial meniscus, current injury, right knee, initial encounter (principal); M22.41 Chondromalacia patellae, right knee
CPT/HCPCS: 29881; 01400; J0690; J1100; J2250; J2405; J2704; J2795; J3010; J7120

== ENCOUNTER 2023-12-26 10:55 | Day surgery (SDC) | payer MEDICARE, BC, SELFPAY ==
[2023-12-26] VITALS (12 sets, daily range): BP systolic 137–178; BP diastolic 71–109; PULSE 65–88; RESP 20; TEMP 36.5–36.6; O2SAT 94–99; BMI 64.4
--- OUTSIDE RECORDS SUMMARY | 2023-12-26 10:58 | XMS_ITS | Clinical Summary ---
Author Organization [facility] Address [address] [address] Care Team Providers Care Business Services Sales Representative Name Role Phone Kezia Mendez DO Primary Care Provider [phone] Source Comments You are receiving this document as you are listed as the primary care provider,follow-up provider, or the patient has been referred to you for consultation.This is in compliance with the Medicare andThe [facility] EHR Incentive Program,which states Providers who transition their patient to another setting of careor provider of care or refers their patient to another provider of care shouldprovide summary care record for each transition of care or referral. ZENTICKET Allergies Active Allergy Reactions Criticality Noted Date [...] daily. 90 Tablet 3 07/25/2023 07/24/2024 Active Social History Tobacco Use Types Packs/Day Years [...] Additional history exists Influenza (#1) 2023 02/02/2023, 1103/2021, 02/11/2021, Additional history exists RSV (1 - 1-dose 75+ series) 10/26/2030 DTaP/Tdap/Td (3 - Tdap) 06/09/2032 06/09/2022, 01/09 [...] on patient's age to complete this topic Care Teams Business Services Sales Representative Relationship Specialty Start Date End Date Kezia Mendez DO [address] [place] [address] PCP - General Family Practice 06/06/23
--- OUTSIDE RECORDS SUMMARY | 2023-12-26 10:59 | XMS_ITS | Clinical Summary ---
Author Organization [facility] Address [place], [place] [address] Care Team Providers Care Case Management Director Name Role Phone Kezia Mendez DO Primary Care Provider [phone] Allergies Active Allergy Reactions Criticality Noted Date [...] once daily. 90 Tablet 3 08/01/2023 Active Hospital, Clinic, or Other Facility Administered Medication Ordered Dose Route Frequency Start Date End Date Status triamcinolone acetonide (KENALOG) injection 20 mgIndications:Plantar fasciitis 20 mg IDrm ONE TIME 12/14/2023 12/14/2023 Ended Active Problems Problem Noted Date Diagnosed Date Osteopenia of multiple sites 08/17/2023 Overview (08/17/2023): DEXA 2023 shows osteopenia Repeat in 2025 due to wrist fracture Ulcerative proctitis without complication 2023 Overview (07/13/2023): Colonoscopy Q3 years (performed in 2022) Primary hypertension 07/13/2023 Mixed hyperlipidemia 07/13/2023 Symptomatic PVCs 07/13/2023 Hypertrophy of breast 02/25/2014 Small upper thoracic disk herniations 09/04/2012 Degeneration of cervical intervertebral disc 07/2010 Shoulder impingement syndrome 07/30/2010 Resolved Problems Problem Noted Date Diagnosed Date Resolved Date Colitis 09/04/2008 07/13/2023 Proctitis 09/04/2008 07/13/2023 Encounters Date Type Department Care Team Description 12/22/2023 Travel 12/14/2023 2:45 PM CDT Office Visit [address] [address] Parker Maurer DPM Follow Up (Bilateral plantar fasciitis pain) 12/14/2023 Travel 10/26/2023 3:50 PM CDT Phone Office Visit [address] [address] Kezia Mendez, DO Phone Visit (COVID-19 +, discuss Paxlovid, symptom onset 10/25/23) 10/26/2023 Travel 10/26/[address] [address] Kezia Mendez, Questions (COVID-19/) 10/18/2023 4:00 PM CDT Ancillary Procedure [address] [address] 10/18/2023 3:20 PM CDT Office Visit [address] [address] Marvel Mendez DO Wrist Injury (Feeling okay - bracing, using some ice, no OTC medication ) 10/18/2023 Travel 10/11/2023 10:10 AM CDT Preop Visit [facility] [address] [place] [address] Kezia Mendez DO Preoperative Exam (DOS: 10/19/2023 Right Knee, Dr. Lainez, [facility]) 10/11/2023 Travel 10/07/2023 Telephone [facility] [address] [place] [address] Kezia Mendez DO Appointment Request (Pre- Op) 09/26/2023 9:00 AM CDT Ancillary Procedure [facility] [address] [place] [address] 09/26/2023 8:30 AM CDT Office Visit [facility] [address] [place] [address] Marvel Mendez DO Wrist Pain/problem (Feeling some improvement - notes she may have tweaked it a couple times since visit ) 09/26/2023 Travel from Last 3 Months Immunizations Name Administration Dates Next Due COVID-19 VACCINE COMIRNATY ([email or web address] 30MCG/0.3ML) 12YO+ PFS 02/02/2023 Influenza A (H1N1), Inactivated 03/06/2009 [...] Hyperlipidemia Father Hypertension Father Other Mother acoustic georgie a Cancer-breast No Family History Cancer-ovarian No [...] file Travel History Travel Start Travel End [place] 12/17/2023 12/22/2023 Obstetrics History Last Filed Vital Signs Vital Sign Reading Time Taken Comments Blood Pressure 131/88 12/14/2023 2:52 PM CDT Pulse 83 12/14/2023 2:52 PM CDT Temperature 36.7 ??C (98.1 ??F) 02/26/2014 7:45 AM CS T Respiratory Rate 20 02/26/2014 7:45 AM MILLROOM SUPERVISOR Oxygen Saturation 94% 12/14/2023 2:52 PM CDT Inhaled Oxygen Concentration - - Weight 75 kg (165 lb 6.4 oz) 10/11/2023 10:12 AM CDT Height 159.6 cm (5' 2.84) 10/11/2023 10:12 AM C DT Body Mass Index 29.45 10/11/2023 10:12 AM CDT Plan of Treatment Upcoming Encounters Date Type Department Care Team (Late st Contact Info) Description 12/27/2023 3:20 PM CDT Telemedicine [facility] [address] [place] [address] Joi Simon, DECK BUILDER [address] [place] [address] Health Maintenance Due Date Last Done Comments COVID-19 vaccine series ( season) 2023 02/02/2023, 01/26/2022, 07/31/2021, Additional history exists Influenza for age 65+ 11/27/2023 02/02/2023 , 01/26/2022, 02/11/2021, Additional history exists Depression screening for age 12+ 07/12/2024 07/13/19 24 Medicare Wellness for age 65+ 07/13/2024 07/13/2023 Mammogram for age 45-75 08/14/2024 08/15/19 24, 08/03/2022, 05/22/2020, Additional history exists BMI (ht and wt on same day) for age 18+ 10/10/2024 10/11/2023, 07/13/2023 Lipids for age 45-75 10/10/2028 10/11/2023, 07/13/19 24 Tetanus booster 06/09/2032 06/09/2022, 01/10/2012 Colonoscopy through age 75 02/22/2033 02/22/2023 Zoster (shingles) series for age 50+ Completed 03/12/2019, 12/12/2018, 02/25/2015 Pneumococcal series for age 65+ Completed , 05/27/2021 Tdap Completed 06/09/2022, 01/10/2012 Hepatitis C screening for ag e 18-79 Completed 07/13/2023 DEXA/DXA scan for age 65+ Completed 08/15/2023 Procedures Procedure Name Priority Date/Time Associated Diagnosis Comments XR WRIST 3 VIEWS LEFT Routine 10/18/2023 3:57 PM CDT Closed fracture of distal end of left radius with routine healing, unspecified fracture morphology, subsequent encounter POTASSIUM Routine 10/11/2023 10:53 AM CDT Pre-op evaluation LIPID PANEL W REFLEX MEASURED LDL Routine 10/11/2023 10:53 AM CDT Mixed hyperlipidemia XR WRIST 3 VIEWS LEFT Routine 09/26/2023 8:58 AM CDT Closed fracture of distal end of left radius with routine healing, unspecified fracture morphology, subsequent encounter XR DXA BONE DENSITY 2 SITES AXIAL Routine 08/15/2023 11:28 AM CDT Postmenopausal XR MAMMO YOAN BILAT SCREEN Routine 08/15/2023 11:05 AM CDT Breast cancer screening by mammogram ANTI HCV Routine 07/13/2023 9:48 AM CDT Need for hepatitis C screening test SCAN-COLONOSCOPY 02/22/2023 12:0 0 AM MILLROOM SUPERVISOR from Last 3 Months or Most Recently Relevant to Health Maintenance Results * XR WRIST 3 VIEWS LEFT (10/18/2023 3:57 PM CDT) Only the most recent of2 resultswithin the time period is included. Anatomical Region Laterality Modality WRISTS, WRIST L Computed Radiogr aphy 10/19/2023 3:33 PM CDT Narrative 10/19/2023 3:33 PM CDT For Patients: ??As a result of the Cures Act, medical imaging exams and procedure reports are released immediately into your electronic medical record. ??You may view this report before your referring provider. ??If you have questions, please contact your health care provider. Indication: Follow-up fracture Technique: Three views left wrist Comparison: 09/26/2023 Findings: Continued healing of the distal radial metaphyseal fracture. Alignment stable with neutral alignment of the distal radial articular surface. Chronic ossicle adjacent to the ulnar styloid. Osteopenia. Mild degenerative changes. Impression: Near-complete healing of the distal radial fracture. Dictated by Gonzalo Sherman MD @ 10/19/2023 3:33:34 PM (Electronically Signed) Procedure Note Gonzalo Sherman MD - 10/19/2023 For Patients: As a result of the Cures Act, medical imagingexams and procedure reports are released immediately into your electronicmedical record. You may view this report before your referring provider.If you have questions, please contact your health care provider. Indication: Follow-up fracture Technique: Three views left wrist Comparison: 09/26/2023 Findings: Continued healing of the distal radial metaphyseal fracture. Alignmentstable with neutral alignment of the distal radial articular surface.Chronic ossicle adjacent to the ulnar styloid. Osteopenia. Milddegenerative changes. Impression: Near-complete healing of the distal radial fracture. Dictated by Gonzalo Sherman MD @ 10/19/2023 3:33:34 PM (Electronically Signed) Marvel Mendez DO GENERAL IMAGING * LIPID PANEL W REFLEX MEASURED LDL (10/11/2023 10:53 AM CDT) CHOLESTEROL,TOTAL 151 100 - 199 mg/dL 10/11/2023 7:33 PM CDT [facility] Comment: Cholesterol, Total Reference Ranges Desirable <200 mg/dL Borderline 200-239 mg/dL High >=240 mg/dL TRIGLYCERIDES 101 <150 mg/dL 10/11/2023 7:33 PM CDT [facility] HDL CHOLESTEROL 54 >40 mg/dL 7:33 PM CDT [facility] NON-HDL CHOLESTEROL 97 <145 mg/dl 10/11/2023 7:33 PM CDT [facility] CHOL/HDL RATIO 2.80 <4.50 10/11/2023 7:33 PM CDT [facility] LDL CHOLESTEROL 77 <=130 mg/dL 10/11/2023 7:33 PM CDT [facility] VLDL CHOLESTEROL 20 <=30 mg/dL 10/11/2023 7:33 PM CDT [facility] PROVIDER ORDERED STATUS RANDOM 10/11/2023 7:33 PM CDT [facility] Blood BLOOD SPECIMEN / Unknown Venipuncture / Unknown 10/11/2023 10:53 AM CDT 10/11/2023 10:54 AM CDT Kezia Mendez DO [facility] [address] [place] [address], [place] * POTASSIUM (10/11/2023 10:53 AM CDT) POTASSIUM 3.7 3.5 - 5.1 mmol/L 10/11/2023 7:33 PM CDT [facility] Blood BLOOD SPECIMEN / Unknown Venipuncture / Unknown 10/11/2023 10:53 AM CDT 10/11/2023 10:54 AM CDT Kezia Mendez DO CHEMISTRY Performing Organization Address [facility] Co de Phone Number [facility] [address] [place] [address], [place] * (ABNORMAL) XR DXA BONE DENSITY 2 SITES AXIAL [27236.1] (08/15/2023 11:28 AM CDT) Anatomical Region Laterality [...] recommended in 3-5 years. Alice Gilbert PA-C [facility] 08/16/2023 ?? Narrative 08/16/2023 2:00 PM CDT For Patients: Results are automatically released to your [email or web address] ([email or web address]) account once available, in compliance with federal regulations. This means that you may see your results before your provider has had a chance to review them. Please allow 2-3 business days for your provider to comment on the results. XR DXA Bone Mineral Density (BMD) EXAM LOCATION: [facility] [address] [facility] [address] PATIENT NAME: Dianne Louie DATE OF : [...] two scanners are made by the same pastry cook. PROCEDURE: Dual-energy x-ray absorptiometry performed with routine [...] DEXA * XR MAMMO YOAN BILAT SCREEN [[id number]] (08/15/2023 11:05 AM CDT) Anatomical Region Laterality [...] care provider. XR MAMMO YOAN BILAT SCREEN [[id number]] CLINICAL HISTORY: ??This is an asymptomatic 67 [...] distortion. Kezia Aleyda Shaqra DO MAMMO * ANTI HCV (07/13/2023 9:48 AM CDT) HEPATITIS C ANTIBODY Non-Reacti ve Non-React [place] 07/13/2023 5:03 PM CDT [facility] Comment:Please note, per www .CDC.gov: [...] AM CDT Kezia Mendez DO SEND OUTS [facility] [address] [place] [address], [place] * SCAN-COLONOSCOPY (02/22/2023 12:00 AM MILLROOM SUPERVISOR) Scanner OTHER from Last 3 Months or Most Recently Relevant to Health Maintenance Advance Directives Documents on File Type Date Recorded Patient Medical Research Tech Expl anation Healthcare Directive 11/10/2018 019 * Full Code (Latest Code Status on File) Date Activated Date Inactivated Comments 02/25/2014 7:32 AM 02/26/2014 1:54 PM Care Teams Case Management Director Relationship Specialty Start Date End Date Kezia [place]endez [place] [address] [place] [address] [place] [address] PCP - General Family Practice 07/13/23
[2023-12-26] MEDS: BUPIVACAINE 0.5% 30 ML INJECTION (12:30)
[2023-12-26] MEDS: LIDOCAINE 1 % PF 30 ML INJECTION (14:02)
--- NOTE | 2023-12-26 14:28 | PM.ORPRC ---
Procedure Note Date of procedure: 12/26/23 Procedure: PREOPERATIVE DIAGNOSIS: 1. Right posteromedial knee/popliteal cyst with calcified loose body/benign mass POSTOPERATIVE DIAGNOSIS: 1. Right posteromedial knee/popliteal cyst with calcified loose body/benign mass PROCEDURE: 1. Right posteromedial knee/popliteal cyst benign mass open excision SURGEON: Danilo Berumen MD. SERVICE TECH/WELDER: Jeffrey Unger PA-C - Of note, an neurology physician assistant was critical for this case to aid in patient positioning, tissue retraction, limb manipulation/positioning, and closure. ANESTHESIA: Local anesthetic (50:50 mixture of 1% lidocaine with epi and 0.5% marcaine plain) IMPLANTS: None TOURNIQUET: None COMPLICATIONS: None evident INDICATIONS: The patient is a pleasant 60-year-old female who has experience right knee pain for multiple months. MRI was obtained indeed showed some meniscus pathology. She underwent a right knee arthroscopy for partial medial meniscectomy. Unfortunately, this did help some rib pain but not all of her pain. She continued to have pain in the posterior medial aspect of her knee and a fullness sensation. Indeed the MRI showed a popliteal cyst with a 1 cm ossified loose body within the popliteal cyst that could not be accessed from the knee compartments during the knee arthroscopy. After thorough discussion, and because she continued to have pains location, it was felt prudent to pursue an open cyst excision and loose body/benign mass excision. DESCRIPTION OF PROCEDURE: Following a thorough discussion of risks, benefits, and alternatives consent was obtained and the operative extremity was marked. The patient was brought to the operating room and placed supine on the operating table. No antibiotics were administered as this was planned to be a local case only. Proper time-out was performed identifying proper patient, site, and procedure. The operative extremity was prepped and draped in the appropriate sterile fashion using ChloraPrep. The limb was exsanguinated and the tourniquet inflated. An incision was made on the posterior aspect of the right knee longitudinally from the popliteal crease distal her approximately 2.5 cm. Sharp incision through skin and blunt dissection through the subcutaneous tissue allowed identification of deep fascia. This was sharply incised with a 15 blade. Thin, pickard yellowish colored serous fluid was encountered. A large amount. This was suctioned. We clearly could identify the margins of this popliteal cyst in the posterior medial aspect of the knee. However, I want to identify this ossified loose body that was in the popliteal cyst. After palpating for some time, we were able to express this ossified loose body. It measured 1 x 1 x 1.1 cm. The robbins of the popliteal cyst were then mobilized from the surrounding fascial tissue including the gastrocnemius fascia on the deep layer and the superficial fascia/subcutaneous layer. Metzenbaum scissors and Bovie cautery were utilized to free this from that surrounding fascial tissue. The cystic sac was sent for permanent pathology along with the ossified loose body/benign mass. The cystic sac extended approximately 7 x 3 x 2 cm proximal-distal, medial-lateral, superficial-deep, respectively. Closure was performed with 3-0 Vicryl and 3-0 Monocryl for subcutaneous and subcuticular layers, respectively. Soft dressings were applied, and the patient was awoken/transferred to the recovery room in stable condition. PLAN: 1. Encourage elevation of the operative extremity. 2. Range of motion of the operative extremity/digits as tolerated. 3. Ibuprofen, acetaminophen as needed for pain. 4. Follow up with PA visit in 12-16 days for wound check.
== END 2023-12-26 14:39 | disposition home or self-care (01) ==
PROVIDERS: PCP Family Medicine; Visit Provider Orthopaedic Surgery Sports Medicine
PROC: (CPT 27345; principal; 2023-12-26 13:15)
DX: M71.21 Synovial cyst of popliteal space [Baker], right knee (principal)
CPT/HCPCS: 27345; 88304; J2001

== ENCOUNTER 2024-04-25 13:37 | Outpatient (CLI) | payer MEDICARE, BC, SELFPAY | END 2024-04-25 13:38 | disposition home or self-care (01) | LOC: MRI 13:37 | PROVIDERS: PCP Family Medicine; Visit Provider Orthopaedic Surgery Sports Medicine | DX: M84.361A Stress fracture, right tibia, initial encounter for fracture (principal); S83.241A Other tear of medial meniscus, current injury, right knee, initial encounter; M71.21 Synovial cyst of popliteal space [Baker], right knee | CPT/HCPCS: 73721 ==

== ENCOUNTER 2024-10-29 15:14 | Outpatient (CLI) | payer MEDICARE, BC, SELFPAY ==
--- NOTE | 2024-10-29 15:30 | CRLHL7_ITS ---
For Patients: As a result of the Century Cures Act, medical imaging exams and procedure reports are released immediately into your electronic medical record. You may view this report before your referring provider. If you have questions, please contact your health care provider. CLINICAL INDICATION: Injury of left foot. Pain. COMPARISON IMAGING STUDIES: None. TECHNICAL: Noncontrast MRI of the left forefoot. Axial, sagittal and coronal T1, PD and STIR images. 1.5 Sydnee MR scanner. FINDINGS: OSSEOUS STRUCTURES: There is no acute fracture, avascular necrosis or osteomyelitis. Mild bone marrow edema within the proximal phalanx of the 2nd toe. Subchondral bone edema involving the 1st metatarsal head relates to grade 4 chondromalacia. JOINT SPACES: Advanced 1st MTP joint degenerative changes. Subchondral bone edema involving the 1st metatarsal head relates to grade 4 chondromalacia. There is hallux valgus with bunion. Moderate 2nd MTP joint effusion. There is slight dorsal subluxation of the base of the proximal phalanx with respect to the metatarsal head. Attenuated distal aspect of the plantar capsule suggesting sequelae of capsular injury. The 3rd through 5th MTP joints are maintained. Interphalangeal joints are maintained. TMT articulations are maintained. LIGAMENTS: The Lisfranc ligament is intact. TMT joint alignment is maintained. TENDONS AND MUSCLES: The flexor and extensor tendons are intact. No muscle atrophy or edema. SOFT TISSUES: There is subcutaneous edema involving the foot. IMPRESSION: 1. Moderate 2nd MTP joint effusion. Attenuated distal aspect of the plantar capsule suggesting sequelae of capsular injury. Slight dorsal subluxation of the base of the proximal phalanx with respect to the metatarsal head. 2. Advanced 1st MTP joint degenerative changes with hallux valgus and bunion. 3. No acute fracture. 4. Subcutaneous edema. Dictated by Zane Mclain MD @ 10/30/2024 11:27:19 AM (Electronically Signed)
== END 2024-10-29 15:15 | disposition home or self-care (01) ==
LOC: MRI 15:15
PROVIDERS: PCP Family Medicine; Visit Provider Podiatrist
DX: M79.672 Pain in left foot (principal); M25.475 Effusion, left foot; M19.072 Primary osteoarthritis, left ankle and foot; S99.922A Unspecified injury of left foot, initial encounter
CPT/HCPCS: 73718

== ENCOUNTER 2025-01-02 08:40 | Day surgery (SDC) | payer MEDICARE, BC, SELFPAY ==
[2025-01-02 09:36] VITALS: BMI 30.1
[2025-01-02 09:40] VITALS: BP 125/85; PULSE 73; RESP 16; TEMP 36.1; O2SAT 97
[2025-01-02] MEDS: LACTATED RINGERS 1000 ML 1,000 ML 100 ML IV (09:44)
[2025-01-02] MEDS: SODIUM CHLORIDE 0.9 % (FLUSH) 10 ML SYRINGE IVF (09:44)
[2025-01-02] MEDS: BUPIVACAINE 0.25% 30 ML INJECTION (10:55)
[2025-01-02 12:36] VITALS: BP 96/71; PULSE 70; RESP 14; TEMP 36.1; O2SAT 91
--- NOTE | 2025-01-02 12:40 | P.ANES_ITS ---
Anesthesia Charges Start Date/Time Anesthesia Start Date: 01/02/25 Anesthesia Start Time: 10:46 Stop Date/Time Anesthesia Stop Date: 01/02/25 Anesthesia Stop Time: 12:39 Coding CPT Codes CPT Codes: ANESTH LOWER LEG BONE SURG - 04913 ([id number]) P2 - PATIENT W/MILD SYST DISEASE, QK - PLANNER CHIEF 2-4 CNCRNT ANES PROC, QX - PORK CUTLET MAKER SVC W/ MD MED DIRECTION
--- NOTE | 2025-01-02 12:40 | W.ANESCHARGE ---
Anesthesia Charges Start Date/Time Anesthesia Start Date: 01/02/25 Anesthesia Start Time: 10:46 Stop Date/Time Anesthesia Stop Date: 01/02/25 Anesthesia Stop Time: 12:39 Coding CPT Codes CPT Codes: ANESTH LOWER LEG BONE SURG - 30351 ([id number]) P2 - PATIENT W/MILD SYST DISEASE, QK - PIN BALL MACHINE MECHANIC 2-4 CNCRNT ANES PROC, QX - SHAKE LOADER SVC W/ MD MED DIRECTION
[2025-01-02 12:45] VITALS: BP 113/40; PULSE 69; RESP 14; O2SAT 94
[2025-01-02 12:56] VITALS: BP 118/80; PULSE 66; RESP 16; O2SAT 96
[2025-01-02 13:00] VITALS: BP 126/71; PULSE 63; RESP 16; O2SAT 96
--- NOTE | 2025-01-02 13:09 | P.ANES_ITS ---
Anesthesia Charges Start Date/Time Anesthesia Start Date: 01/02/25 Anesthesia Start Time: 10:46 Stop Date/Time Anesthesia Stop Date: 01/02/25 Anesthesia Stop Time: 12:39 Coding CPT Codes CPT Codes: ANESTH LOWER LEG BONE SURG - 89650 ([id number]) P2 - PATIENT W/MILD SYST DISEASE, QK - PATCHING MACHINE OPERATOR 2-4 CNCRNT ANES PROC, QX - SMOKING PIPES CLEANER SVC W/ MD MED DIRECTION
--- NOTE | 2025-01-02 13:09 | W.ANESCHARGE ---
Anesthesia Charges Start Date/Time Anesthesia Start Date: 01/02/25 Anesthesia Start Time: 10:46 Stop Date/Time Anesthesia Stop Date: 01/02/25 Anesthesia Stop Time: 12:39 Coding CPT Codes CPT Codes: ANESTH LOWER LEG BONE SURG - 07546 ([id number]) P2 - PATIENT W/MILD SYST DISEASE, QK - GLASS BREAKER 2-4 CNCRNT ANES PROC, QX - HVAC COMMERCIAL SALESPERSON SVC W/ MD MED DIRECTION
[2025-01-02 13:30] VITALS: BP 126/76; PULSE 62; RESP 16; TEMP 36.3; O2SAT 98
--- NOTE | 2025-01-03 06:00 | W.PM.PODPROC ---
Date of Procedure: 01/02/25 Surgeon: Ave Cannon DPM Co-Surgeon: Matthew Chacon DPM Pre-op Diagnosis: 1. Plantar burrows rupture, left 2nd ray 2. Metatarsalgia, left 2nd ray 3. Synovitis, left 2nd metatarsal phalangeal joint Post-op Diagnosis: 1. Plantar burrows rupture, left 2nd ray 2. Metatarsalgia, left 2nd ray 3. Synovitis, left 2nd metatarsal phalangeal joint Type of Procedure: 1. Repair of toe dislocation, left 2nd toe 2. Mitzy osteotomy, left 2nd metatarsal 3. Repiar of flexor tendon, left foot Procedure Description: The patient was brought from the preoperative holding area to the operating room, and placed on the operating room table in the supine positions. At this time, a timeout was performed to identify the proper patient, site and operation to be performed. A well padded pneumatic ankle tourniquet was applied to the patient's left ankle. A preoperative injection of 16 cc of a 0.25% Marcaine plain was administered in a ray block type fashion? to the patient's left foot. The left foot was then scrubbed, prepped and draped in the normal sterile fashion. The left lower extremity was elevated for exsanguination, and the pneumatic ankle tourniquet was inflated to a level of 250 millimeters of mercury. Attention was drawn to the second metatarsophalangeal joint where a longitudinal incision was made. The incision was deepened down to the level of the metatarsal head, and the capsular tissue was divided, exposing the second metatarsal head. Dislocation of the proximal phalanx sitting on the dorsal aspect of the metatarsal head was appreciated. Utilizing a McGlamary elevator, the dislocation was reduced. A Mitzy osteotomy was performed on the metatarsal with a subsequent wedge removed to allow for shortening, elevation, and plantar rotation of the metatarsal head. The redundant dorsal bone surface was then resected and smoothed to normal anatomical contour. The capital fragment was shortened approximately 6 mm and held in temporary position with a smooth wire to fully expose the plantar plate. Next to the plantar plate, an extension of the flexor tendons, was visualized and noted to be torn at the lateral insertion at the base of the proximal phalanx with a central buttonhole tear. Also the plantar plate itself was noted to be attenuated. Using the Arthrex plantar plate repair system (scorpion device), first a suture was placed into the central component of the plantar plate using the fibertape. Next, one end of the Fibertape was then placed into the lateral component of the plantar plate In the other end was placed into the medial component of the plantar plate. The sutures were clamped to be used for attachment to the proximal phalanx later in the procedure. A 1.6 mm pin was used to create holes at the base of the proximal phalanx dorsally from distal medial and lateral to plantar lateral and medial for crossed tunnels. Using a Arthrex suture passing device, the sutures from the plantar plate that were previously clamped were passed through the holes in the proximal phalanx from plantar to dorsal. The temporary pin fixating the Mitzy osteotomy was removed and the second metatarsal head was reduced, placed in anatomic reduction, and fixated using one Arthrex snap off screw and one threaded K-wire. The sutures previously passed through the base of the proximal phalanx from the plantar plate were tied dorsally with the digit held in plantarflexion with reduction of the second metatarsophalangeal joint. The stability of the second metatarsophalangeal joint was assessed and no dislocation or instability was observed. The surgical site was thoroughly irrigated with normal saline. Deep capsular structures were closed with 2-0 Vicryl. The skin was reapproximated with 3-0 Monocryl and 4-0 Nylon. A postoperative dressing of xeroform gauze, Kerlix, 4 x 4's, and an KAMALJIT bandage was applied to the patient's left foot. Upon release of the pneumatic ankle tourniquet, immediate reperfusion of toes 1 through 5 was noted. The patient was transferred from the operating room to the post anesthesia care unit with vital signs stable and vascular status intact to the left lower extremity. The patient appeared to tolerate both the procedure and anesthesia well.? Anesthesia: MAC and local Hemostasis: ankle Estimated blood loss (mL): 5 Provider Operated C-arm: C-arm fluoroscopy operated by myself, .178 mGy fluoro used, 3 C-arm spot images were obtained. Implants: 1x 2.0mm Arthrex snap off screw, 1x threaded K wire Specimens: none sent Disposition: same day
== END 2025-01-02 13:45 | disposition home or self-care (01) ==
PROVIDERS: PCP Family Medicine; Visit Provider Podiatrist
PROC: (CPT 28645; principal; 2025-01-02 10:00)
DX: S93.525A Sprain of metatarsophalangeal joint of left lesser toe(s), initial encounter (principal); M65.872 Other synovitis and tenosynovitis, left ankle and foot; M77.42 Metatarsalgia, left foot
CPT/HCPCS: 28645; 28308; 01480; 73630; 76000; C1713; J0665; J0690; J2250; J2405; J2704; J3010; J7120

== ENCOUNTER 2025-01-22 16:16 | Outpatient (CLI) | payer MEDICARE, BC, SELFPAY ==
--- NOTE | 2025-01-22 16:30 | CRLHL7_ITS ---
For Patients: As a result of the Century Cures Act, medical imaging exams and procedure reports are released immediately into your electronic medical record. You may view this report before your referring provider. If you have questions, please contact your health care provider. Indication: Postop Technique: Left foot 3 views Comparison: 01/09/2025 Findings: Postop changes to the 2nd metatarsal head. Alignment is similar. Stable hardware. Stable alignment at the 1st MTP joint. Soft tissues appear similar. Impression: No significant change. Dictated by Gonzalo Sherman MD @ 01/23/2025 8:55:14 AM (Electronically Signed)
== END 2025-01-22 16:17 | disposition home or self-care (01) ==
LOC: RAD 16:17
PROVIDERS: PCP Family Medicine; Visit Provider Podiatrist
DX: Z48.89 Encounter for other specified surgical aftercare (principal); S99.922A Unspecified injury of left foot, initial encounter
CPT/HCPCS: 73630